=== PATIENT | male | born 1945 | race Caucasian/White ===

== ENCOUNTER → 2016-07-19 | Outpatient (CLI) | payer MEDICARE, OTHER ==
[~2016-07-19] MED LIST: ALLO300T2 PO; ATOR80TA PO; CLOP75TA28 PO; CRV6.25T PO; FISH1CAP15 PO; ISOS30TA7 PO; LSNP20T PO; MAGN200T PO; SERT50TA9 PO; TRAZ100T92 PO; VIT1TABL57 PO
--- NOTE | 2016-07-19 14:51 | Diagnostic Imaging Report ---
PROCEDURE: US Aorta Doppler. TECHNIQUE: Multiple real time grayscale images were obtained over the abdominal aorta in various projections. DATE: July 19, 2016. INDICATION: 70-year-old male, abdominal aortic aneurysm. COMPARISON: December 26, 2014. June 23, 2014 CT. FINDINGS: There is an abdominal aortic aneurysm distally measuring approximately 4.1 x 4.2 cm in diameter over a length of approximately 6.1 cm. On recent comparison ultrasound of December 26, 2014, this was previously measured at 3.8 x 3.7 cm in diameter. On comparison CT abdomen and pelvis of June 23, 2014, the infrarenal abdominal aortic aneurysm is measured at 4.1 x 3.9 cm in size. The size of the infrarenal abdominal aortic aneurysm is likely grossly unchanged since at least June 23, 2014. The left common iliac arteries measured up to 14 mm in diameter. The right common iliac arteries measured up to 14 mm in diameter. These do not measure larger in diameter compared to prior CT. IMPRESSION: 1. Infrarenal abdominal aortic aneurysm measuring up to approximately 4.1 x 4.2 cm in size. Comparing with prior CT of June 23, 2014, diameter of the aneurysm is measured approximately 4.1 x 3.9 cm. The size of the aneurysm is grossly unchanged since June 2014. 2. 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 Dictated by: Dictated on workstation # [id number]
== END ==
LOC: RAD 13:18
PROVIDERS: ATTEND Family Medicine
DX: I71.4 Abdominal aortic aneurysm, without rupture (principal)
CPT/HCPCS: 93978